=== PATIENT | male | born 1930 | race Caucasian/White ===

== ENCOUNTER 2017-01-20 17:07 | Observation (INO) | payer OTHER ==
[~2017-01-20] VITALS: Ht 182.9 cm; Wt 94.7 kg
[~2017-01-20 17:07] MED LIST: ASPIRIN EC81 MG; FISH OIL; FUROSEMIDE40 MG PO; IRON FORMULA PO; JANUVIA100 MG; LANTUS SOL100 UNITS/ SC; LIPITOR80 MG PO; LISINOPRIL10 MG PO; NITROSTAT0.4 MG SL; PLAVIX75 MG PO; POTASSIUM CHLO10 ME2 PO; PROTONIX40 MG PO; RANITIDINE HCL150 MG PO; VITAMIN D-11000 UNIT
--- NOTE | 2017-01-20 18:14 | DIAGNOSTIC IMAGING REPORT ---
PROCEDURE: XR CHEST 1 VIEW INDICATION: CHEST PAIN TECHNIQUE: Portable AP view 05:40 p.m. COMPARISON: Chest x-ray 11/10/2015 FINDINGS: Poor inspiration with mild right upper and left lower lobe infiltrates. Mediastinotomy. Mild cardiomegaly. Pulmonary vascular is within normal limits. Severe right glenohumeral joint degenerative changes. IMPRESSION: 1. Bilateral infiltrate suggestive of pneumonia, possibly aspiration. 2. Median sternotomy and mild cardiomegaly
--- NOTE | 2017-01-20 20:51 | ED ORDER SUMMARY ---
..... Patient: EDILMA DURANT OrderSheet [facility] VisitID: [id number] [address] [place] [address] 86y, M Registration Date/Time: 01/20/2017 ORDER SHEET Weight: 113.3 kg (estimated) Allergies: Duloxetine, No Known Drug Allergy, Pantoprazole GENERAL ORDERS: Auto Slip Cover Installer (Continuous) (17:21 01/20/2017 MWinterer R.N. per protocol) (17:21 MWinterer R.N.) Chest 1V Urgent (17:21 01/20/2017 MWinterer R.N. per protocol) (Ack 17:29 RKaruga) (17:46 MWinterer R.N.) Cardiac Panel Stat (17:21 01/20/2017 MWinterer R.N. per protocol) (Ack 17:29 RKaruga) (17:39 MWinterer R.N.) Oxygen (2 L/min) (NC) (17:21 01/20/2017 MWinterer R.N. per protocol) (17:21 MWinterer R.N.) Pulse oximeter (17:21 01/20/2017 MWinterer R.N. per protocol) (17:21 MWinterer R.N.) EKG - ER Stat (17:21 01/20/2017 MWinterer R.N. per protocol) (17:21 MWinterer R.N.) Blood Culture (No) (N/A) Urgent (20:49 01/20/2017 Vandana SADLER) (Ack 20:56 AMcQuoid ER Tech1) (21:03 TBowen R.N.) Lactate, Serum Urgent (20:50 01/20/2017 Vandana SADLER) (Ack 20:56 AMcQuoid ER Tech1) (21:03 TBowen R.N.) PCT (Procalcitonin) Urgent (21:00 01/20/2017 Vandana SADLER) (Ack 21:03 AMcQuoid ER Tech1) (21:04 AMcQuoid ER Tech1) MEDICATION ORDERS: NitroGLYCERIN Paste Topical 1 in. (to CW) (17:32 01/20/2017 Vandana SADLER) (Ack 17:39 MWinterer R.N.) (17:46 MWinterer R.N.) IV FLUIDS: IV Saline Lock (17:21 01/20/2017 MWinterer R.N. per protocol) (17:21 MWinterer R.N.) Ceftriaxone IV 2 gm/50mL (AFTER BLOOD CULTURE) (20:50 01/20/2017 Vandana SADLER) (21:16 TBowen R.N.) Azithromycin IV 500 mg/250 mL (AFTER BLOOD CULTURE) (20:50 01/20/2017 Vandana SADLER) (Ack 21:29 TBowen R.N.) (21:33 TBowen R.N.) ORDER SHEET NOTES: [Electronically signed by Joyce Lara R.N. (22:17 01/20/2017)] [Electronically signed by Jem Pastrana MD (22:30 01/20/2017)] [Electronically locked/signed by Joyce Lara R.N. (22:17 01/20/2017)]
--- NOTE | 2017-01-20 20:51 | ED NURSING NOTES ---
Clinical Report - Nurses [facility] [address] [place] [address] 01/20/2017 17:08 Patient: EDILMA DURANT TRIAGE Acuity: LEVEL 2. Chief Complaint: CHEST PAIN. Alert. No acute distress. --17:18 Tresa Horn R.N. 17:11 01/20/17. BP: 139/89. HR: 73. RR: 20. O2 saturation: 99% on room air. Temp: 98.3 F (oral). Pain level now: 11/24. --17:18 Tresa Horn R.N. Weight: 113.3 kg estimated. Height/Length: 69 inches Per Patient. BMI: 36.9. --17:17 Tresa Horn R.N. Medications Atorvastatin Calcium Oral 80 mg, daily. Carvedilol Phosphate ER Oral 20 mg, 1/2 tab BID. Furosemide Oral 80 mg, 1/2 tab daily. Januvia Oral (Tablet 100 mg) 100mg, daily. --19:11 Tresa Horn R.N. Donepezil HCl Oral (Tablet 10 mg). --19:11 Tresa Horn R.N. Clopidogrel Bisulfate Oral 75 mg. --19:11 Tresa Horn R.N. MetFORMIN HCl Oral 500 mg. --19:12 Tresa Horn R.N. Allopurinol Oral 300 mg. --19:12 Tresa Horn R.N. Hydrocodone-Acetaminophen Oral. --19:12 Tresa Horn R.N. Nitrostat Sublingual 0.4 mg. --19:13 Tresa Horn R.N. Stool Softener Oral. --19:13 Tresa Horn R.N. D3-1000 Oral. --19:13 Tresa Horn R.N. Tylenol Extra Strength Oral. --19:13 Tresa Horn R.N. Allergies Duloxetine. No Known Drug Allergy. Pantoprazole. --17:13 Tresa Horn R.N. Medication/allergy information source: the patient. --17:18 Tresa Horn R.N. History Arrived by EMS. Historian: patient. Accompanied by spouse. Primary physician (Marco Antonio). This started yesterday. Relates location as in the right chest area. Treatment SITE ACQUISITION MANAGER: Took aspirin. Pre-hospital 12-lead EKG. Medications given- nitroglycerin x2. SOCIAL HX: Smoker- current status unknown. No alcohol use or drug use. NUTRITIONAL RISK ASSESSMENT: The nutritional risk assessment revealed no deficiencies. FALL RISK ASSESSMENT: Fall risk assessment completed. Risk factors identified include patient age greater than 65 years and impairment of mobility, sight and hearing. Fall interventions initiated. Patient placed on stretcher. Side rails up x2. Brakes on Bed in low position. Call light in reach of patient. FUNCTIONAL ASSESSMENT: Functional assessment performed: requires assistance with the activities of daily living; uses walker- this mobility impairment is an ongoing problem; wears glasses- this visual impairment is an ongoing problem; hard of hearing in both ears and uses a hearing aid in both ears- this hearing impairment is an ongoing problem; cognitive impairment- Alzheimer's disease. LEARNING NEEDS ASSESSMENT: A learning needs assessment was performed. Factors affecting the patient's ability to learn include cognitive limitations. SKIN INTEGRITY ASSESSMENT: Skin integrity risk assessment completed. No skin integrity risk identified. --17:18 Tresa Horn R.N. PROBLEMS: Changed Mental Status. Alzheimer's Disease. Anemia. Leukocytosis. Chest Pain. Gastroesophageal Reflux. Hyperlipidemia. Nephropathy. CVA - Cerebrovascular Accident. Gout. Coronary Artery Disease. Immunizations. Fall. Abrasion(s). Renal Insufficiency. Congestive Heart Failure. Diabetes Mellitus. Myocardial Infarction. Hypertension. Last Tetanus. Tetanus Status. --17:14 Tresa Horn R.N. ADDITIONAL SURGERIES: Back Surgery. Cataract Surgery. Cholecystectomy. Coronary Artery Bypass Graft. Knee Surgery. Shoulder Surgery. Umbilical Hernia Repair. --17:14 Tresa Horn R.N. Assessment GENERAL / NEURO / PSYCH: Alert. Oriented X 4. Appears in no acute distress. Claudette Coma Scale: 15- eyes open spontaneously (4); best verbal response- oriented x 4 (5); best motor response- obeys commands (6). Patient appears calm and cooperative. RESPIRATORY: Respirations not labored. CVS: Capillary refill less than 2 seconds. GI / : Abdomen soft. SKIN: Mucous membranes are pink. Skin is warm and dry. --17:18 Tresa Horn R.N. Interventions ID band on patient. To treatment room. --17:18 Tresa Horn R.N. 17:12 01/20/2017 Site #1 started prior to arrival by EMS via IV in the left forearm with an 20g angiocath. --17:12 Tresa Horn R.N. PHYSICAL ASSESSMENT 17:18 01/20/17. To room via stretcher. Patient gowned. GENERAL / NEURO / PSYCH: Alert. Oriented X 4. Appears in no acute distress. HEENT: Mucous membranes are pink. RESPIRATORY: Respirations not labored. CVS: Pulses within normal limits. Capillary refill less than 2 seconds. GI / : Abdomen soft and nontender. EXTREMITIES: No lower extremity edema. SKIN: Skin is warm and dry. Normal skin turgor. --17:19 Tresa Horn R.N. 17:19 01/20/17. CVS: Cardiac rhythm: normal sinus rhythm. --17:19 Tresa Horn R.N. NURSING PROGRESS NOTES 17:19 01/20/17. Oxygen administered by nasal cannula at 2 liters. access registrar, pulse oximeter and NIBP monitor placed on patient. Patient gowned. Two patient identifiers checked. Call light placed in reach. Side rails up x 2. Bed placed in lowest position. Brakes of bed on. Patient ready for evaluation- chart flagged and ED physician notified. --17:19 Tresa Horn R.N. EKG time: (1717). EKG was performed by a tech and shown to the ED physician. --17:20 Tresa Horn R.N. 17:46 01/20/2017 NITROGLYCERIN PASTE Topical 1 inch. Applied to the right chest. Allergies verified and confirmed 5 rights. --17:46 Tresa Horn R.N. 17:46 01/20/17. Patient ID band checked for patient name and birthdate: patient confirmed urine collected with return of yellow-colored urine; sample sent to lab. Specimen labeled in the presence of the patient. --17:46 Tresa Horn R.N. 18:40 01/20/17. BP: 126/72. HR: 74. RR: 18. O2 saturation: 100% on nasal cannula at 2 liters/minute. --18:43 Tresa Horn R.N. 19:08 01/20/17. Care transferred and report given (BHAKTI Cook). --19:08 Tresa Horn R.N. 19:10 01/20/17. BP: 115/91. HR: 72. RR: 18. O2 saturation: 100% on nasal cannula at 2 liters/minute. --19:10 Tresa Horn R.N. ( pt resting in bed, pt denies any needs at this time). --19:40 Karen Benavides Reassurance given to the patient and patient's family. ( explained that we are awaiting a bed assignment for this pt, family and pt state understanding). --19:52 Karen Benavides 21:16 01/20/2017 Started 2 gm of Ceftriaxone IVPB in bag #1 50 mL; at 150 mL/hr over 30 minute(s) via site #1 via IV pump. Allergies verified and confirmed 5 rights. IV patency established. IV site checked: no pain, redness, or swelling. IV flushed thoroughly pre- and post-medication administration. --21:16 Karen Benavides 21:33 01/20/2017 Started 500 mg of Azithromycin IVPB in bag #1 250 mL; at 255 mL/hr over 1 hour(s) via site #1 via IV pump. Allergies verified and confirmed 5 rights. IV patency established. IV site checked: no pain, redness, or swelling. IV flushed thoroughly pre- and post-medication administration. --21:34 Karen Benavides 21:33 01/20/2017 Ceftriaxone IVPB Discontinued: bag #1 completed. Total amount infused: 50 mL. IV patency established. IV site checked: no pain, redness, or swelling. IV flushed thoroughly. --21:33 Karen Benavides 22:15 01/20/2017 Azithromycin IVPB Continued: upon admission at the rate of 255 mL/hr bag #1. IV patency established. IV site checked: no pain, redness, or swelling. IV flushed thoroughly. --22:16 Karen Benavides DISPOSITION / DISCHARGE Admitted to Acute Care. Report was given to a nurse via a phone call. Report included patient's care, treatment, medications, reviewed medication reconcilliation, and condition (including any recent changes or anticipated changes). All questions were answered. Report was acknowledged and care was transferred. Patient's personal items; items were placed in belongings bag and given to the family. --21:44 Karen Benavides 22:14 01/20/17. BP: 134/67. HR: 72. RR: 18. O2 saturation: 99%. Temp: deferred. Pain level now: 0/10. --22:15 Karen Benavides Departure time: 22:15. --22:15 Karen Benavides 22:16 01/20/2017 Site #[address] upon admission; patent, no pain and no signs of infection or infiltration; flushes easily. --22:16 Karen Benavides Locked/Released at 01/20/2017 22:17 by Karen Benavides
--- NOTE | 2017-01-20 20:51 | ED CLINICAL REPORT ---
Clinical Report - Physicians/Mid Levels [facility] [address] [place] [address] 01/20/2017 17:08 Patient: EDILMA DURANT Time Seen: 17:24. Arrived- By ambulance. Historian- patient and family. Evaluation limited Mr Durant has short term memory issues. HISTORY OF PRESENT ILLNESS Chief Complaint: CHEST PAIN. At its maximum, severity described as 8 / 10. Modifying factors- relieved by nitroglycerin (four). Relief was complete. It is described as "pain" and it is described as located in the right chest area. This started at 10; Pt notes severe R sided and central chest pain at 10. He notes a cough but denies fever. He took ASA and two NTG his gave him and then got two more NTG sprays from the paramedics. and is still present. (unknown onset). Onset during light activity. No nausea, difficulty breathing or diaphoresis. (ASA - at home 2 2 nitro at home 2 by medics). Recent medical care: The patient was seen recently by a health care provider. ( Checkup with Dr Yan). REVIEW OF SYSTEMS No fever, chills, headache, fever or sore throat. No difficulty breathing, pedal edema, abdominal pain or difficulty with urination. He has had a cough and cough, black stools and stools and chest pain. He has had altered mental status: forgetful. PAST HISTORY Alphonso Yan/Adali (cardiology) PAST HISTORY Coronary artery disease with myocardial infarction. Hypertension. Type II diabetes mellitus. Coronary artery disease. Renal disease. Hyperlipidemia. Advance dementia. Very hard of hearing Aortic stenosis - not operative CABG x 3 vessels on 06.15.06 Back Surgery. Cataract Surgery. Cholecystectomy. Coronary Artery Bypass Graft. Knee Surgery. Shoulder Surgery. Umbilical Hernia Repair. Medications: Tylenol Extra Strength Oral. D3-1000 Oral. Stool Softener Oral. Nitrostat Sublingual 0.4 mg. Hydrocodone-Acetaminophen Oral. Allopurinol Oral 300 mg. MetFORMIN HCl Oral 500 mg. Clopidogrel Bisulfate Oral 75 mg. Donepezil HCl Oral (Tablet 10 mg). Atorvastatin Calcium Oral 80 mg, daily. Carvedilol Phosphate ER Oral 20 mg, 1/2 tab BID. Furosemide Oral 80 mg, 1/2 tab daily. Januvia Oral (Tablet 100 mg) 100mg, daily. Allergies: Duloxetine. No Known Drug Allergy. Pantoprazole. ADDITIONAL NOTES The nursing notes have been reviewed. PHYSICAL EXAM Vital Signs: 01/20/2017 22:14 BP: 134/67. HR: 72. RR: 18. O2 saturation: 99%. Pain level now: 0. 01/20/2017 21:34 BP: 132/87. HR: 74. RR: 16. O2 saturation: 99%. Pain level now: 0. 01/20/2017 20:13 BP: 150/72. HR: 67. RR: 16. O2 saturation: 100%. Pain level now: 0. 01/20/2017 19:10 BP: 115/91. HR: 72. RR: 18. O2 saturation: 100%. 01/20/2017 18:40 BP: 126/72. HR: 74. RR: 18. O2 saturation: 100%. 01/20/2017 17:11 BP: 139/89. HR: 73. RR: 20. O2 saturation: 99%. Temp: 98.3 F. Pain level now: 3/10. Appearance: Alert. No acute distress. Eyes: Pupils equal, round and reactive to light. ENT: Pharynx normal. CVS: Normal heart rate and rhythm. Heart sounds normal. Respiratory: No respiratory distress. Breath sounds normal. Chest nontender. Abdomen: Soft and nontender. Bowel sounds normal. Skin: Skin warm. Normal skin color. Extremities: Extremities exhibit normal ROM. No lower extremity edema. LABS, X-RAYS, AND EKG EKG: No acute ischemia. Chest X-ray: (PROCEDURE: XR CHEST 1 VIEW INDICATION: CHEST PAIN TECHNIQUE: Portable AP view 05:40 p.m. COMPARISON: Chest x-ray 11/10/2015 FINDINGS: Poor inspiration with mild right upper and left lower lobe infiltrates. Mediastinotomy. Mild cardiomegaly. Pulmonary vascular is within normal limits. Severe right glenohumeral joint degenerative changes. IMPRESSION: 1. Bilateral infiltrate suggestive of pneumonia, possibly aspiration. 2. Median sternotomy and mild cardiomegaly). The X-rays were interpreted by the radiologist and contemporaneously by me. Laboratory Tests: CBC w Diff: (ALONSO: 01/20/2017 17:30) ( MsgRcvd 01/20/2017 18:11) Final results Test Result Flag Units (Reference) WHITE BLOOD COUNT 11.3 K/uL (4.5-11.5) RED BLOOD COUNT 4.46 L M/uL (4.50-5.90) HEMOGLOBIN 13.6 gm/dL (13.5-17.5) HEMATOCRIT 41.9 % (41.0-53.0) MEAN CELL VOLUME 94 fL (80-100) MEAN CORPUSCULAR HGB 31 pg (26-34) MEAN CORPUSCULAR HGB CONC 33 g/dL (31-37) RED CELL DISTRIBUTION WIDTH 18.7 H % (11.6-14.8) PLATELET COUNT 220 K/uL (150-400) NEUTROPHIL % 79.7 H % (50-75) LYMPH % 12.8 L % (25-40) MONO % 6.3 % (3-14) EOSINOPHIL % 1.0 % (0-4) BASOPHIL % 0.2 % (0-2) CHEM 13 PANEL: (ALONSO: 01/20/2017 17:30) ( MsgRcvd 01/20/2017 18:33) Final results Test Result Flag Units (Reference) GLUCOSE 182 H mg/dL (70-110) BUN 16 mg/dL (7-18) CREATININE 1.5 H mg/dL (0.6-1.3) Estimated GFR 46.94 mL/min Estimated GFR- 56.89 mL/min Note: Persistent reduction over 3 months in eGFR<60 mL/min/1.73 m2 defines CKD. Patients with eGFR values>=60 mL/min/1.73 m2 may also have CKD if evidence ofpersistent proteinuria. Additional information may be foundat www.kidney.org. SODIUM 140 mmol/L (136-145) POTASSIUM 4.5 mmol/L (3.5-5.1) CHLORIDE 101 mmol/L (98-107) CARBON DIOXIDE 30 mmol/L (21-32) CALCIUM 8.6 mg/dL (8.5-10.1) TOTAL PROTEIN 6.3 L g/dL (6.4-8.2) ALBUMIN 3.0 L g/dL (3.3-5.0) BILIRUBIN, TOTAL 1.2 H mg/dL (0.0-1.0) ALKALINE PHOSPHATASE 134 H U/L (46-116) AST (SGOT) 19 U/L (15-37) ALT (SGPT) 23 U/L (12-78) MAGNESIUM 2.4 mg/dL (1.8-2.4) CPK 50 U/L (24-260) TROPONIN I 0.05 ng/mL (0.00-1.5) TROPONIN REFERENCE RANGE:<0.1 NEGATIVE0.1-1.5 INDETERMINANT>1.5 POSITIVE . PROGRESS AND PROCEDURES Course of Care: 19:34 01/20/17. Labs neg. No pain We were able to get a bed. I discussed the patient with Dr Yan and with Dr Wagner. Dr Wagner has has seen the patient in the ED. The symptoms are not clearly pneumonia nor ACS. The patient will initially be treated for both. Disposition orders written. CLINICAL IMPRESSION CHEST PAIN - RO ACS BILATERAL PULMONARY INFILTRATES. (Electronically signed by Jem Pastrana MD 01/20/2017 22:30)
--- NOTE | 2017-01-20 20:51 | ED ORDER SUMMARY ---
..... Patient: EDILMA DURANT OrderSheet [facility] VisitID: [id number] [address] [place] [address] 86y, M Registration Date/Time: 01/20/2017 ORDER SHEET Weight: 113.3 kg (estimated) Allergies: Duloxetine, No Known Drug Allergy, Pantoprazole GENERAL ORDERS: Monitoring Specialist (Continuous) (17:21 01/20/2017 MWinterer R.N. per protocol) (17:21 MWinterer R.N.) Chest 1V Urgent (17:21 01/20/2017 MWinterer R.N. per protocol) (Ack 17:29 RKaruga) (17:46 MWinterer R.N.) Cardiac Panel Stat (17:21 01/20/2017 MWinterer R.N. per protocol) (Ack 17:29 RKaruga) (17:39 MWinterer R.N.) Oxygen (2 L/min) (NC) (17:21 01/20/2017 MWinterer R.N. per protocol) (17:21 MWinterer R.N.) Pulse oximeter (17:21 01/20/2017 MWinterer R.N. per protocol) (17:21 MWinterer R.N.) EKG - ER Stat (17:21 01/20/2017 MWinterer R.N. per protocol) (17:21 MWinterer R.N.) Blood Culture (No) (N/A) Urgent (20:49 01/20/2017 Vandana SADLER) (Ack 20:56 AMcQuoid ER Tech1) (21:03 TBowen R.N.) Lactate, Serum Urgent (20:50 01/20/2017 Vandana SADLER) (Ack 20:56 AMcQuoid ER Tech1) (21:03 TBowen R.N.) PCT (Procalcitonin) Urgent (21:00 01/20/2017 Vandana SADLER) (Ack 21:03 AMcQuoid ER Tech1) (21:04 AMcQuoid ER Tech1) MEDICATION ORDERS: NitroGLYCERIN Paste Topical 1 in. (to CW) (17:32 01/20/2017 Vandana SADLER) (Ack 17:39 MWinterer R.N.) (17:46 MWinterer R.N.) IV FLUIDS: IV Saline Lock (17:21 01/20/2017 MWinterer R.N. per protocol) (17:21 MWinterer R.N.) Ceftriaxone IV 2 gm/50mL (AFTER BLOOD CULTURE) (20:50 01/20/2017 Vandana SADLER) (21:16 TBowen R.N.) Azithromycin IV 500 mg/250 mL (AFTER BLOOD CULTURE) (20:50 01/20/2017 Vandana SADLER) (Ack 21:29 TBowen R.N.) (21:33 TBowen R.N.) ORDER SHEET NOTES: [Electronically signed by Joyce Lara R.N. (22:17 01/20/2017)] [Electronically signed by Jem Pastrana MD (22:30 01/20/2017)] [Electronically locked/signed by Joyce Lara R.N. (22:17 01/20/2017)]
--- NOTE | 2017-01-20 22:30 | ED MED RECONCILIATION SUMMARY ---
Patient: EDILMA DURANT Medication Reconciliation Report [facility] VisitID: [id number] [address] [place] [address] 86y, M Registration Date/Time: 01/20/2017 Weight: 113.3 kg Height/Length: 69 in. BMI: 36.9 ALLERGIES: Duloxetine, No Known Drug Allergy, Pantoprazole The patient's Home Medications are listed below: THE FOLLOWING MEDICATIONS NEED TO BE RECONCILED: Allopurinol Oral 300 mg Atorvastatin Calcium Oral 80 mg, daily Carvedilol Phosphate ER Oral 20 mg, 1/2 tab BID Clopidogrel Bisulfate Oral 75 mg D3-1000 Oral Donepezil HCl Oral (10 mg) Furosemide Oral 80 mg, 1/2 tab daily Hydrocodone-Acetaminophen Oral Januvia Oral (100 mg) 100mg, daily MetFORMIN HCl Oral 500 mg Nitrostat Sublingual 0.4 mg Stool Softener Oral Tylenol Extra Strength Oral The source(s) of the original Home Medication information: patient The following Medications were given to the patient in the Emergency Department: NITROGLYCERIN PASTE [TOPICAL] Topical 1 in., administered: 01/20/2017 5:46:00 PM Ceftriaxone [IVPB] IVPB bolus 0, then 2 gm 150 mL/hr, administered: 01/20/2017 9:16:00 PM Azithromycin [IVPB] IVPB bolus 0, then 500 mg 255 mL/hr, administered: 01/20/2017 9:33:00 PM The following Medications were prescribed to the patient: None.
--- NOTE | 2017-01-20 22:30 | ED DISCHARGE INSTRUCTIONS ---
Patient: EDILMA DURANT General Instructions [facility] VisitID: [id number] [address] [place] [address] 86y, M Registration Date/Time: 01/20/2017 CHEST PAIN - RO ACS BILATERAL PULMONARY INFILTRATES. (Electronically signed by Jem Pastrana MD 01/20/2017 22:30)
--- NOTE | 2017-01-20 22:30 | ED DISCHARGE INSTRUCTIONS ---
Patient: EDILMA DURANT General Instructions [facility] VisitID: [id number] [address] [place] [address] 86y, M Registration Date/Time: 01/20/2017 CHEST PAIN - RO ACS BILATERAL PULMONARY INFILTRATES. (Electronically signed by Jem Pastrana MD 01/20/2017 22:30)
--- NOTE | 2017-01-20 22:30 | ED MAR SUMMARY ---
..... Medication Administration Record [facility] [address] [place] [address] Patient: EDILMA DURANT Visit ID: [id number] 86y, M Weight: 113.3 kg Height/Length: 69 in BMI: 36.9 ALLERGIES: Duloxetine, No Known Drug Allergy, Pantoprazole Given 17:46 01/20/2017 Tresa Horn R.N. Medication Administered: NITROGLYCERIN PASTE [TOPICAL], Dose: 1 in. Topical. Medication Ordered: NitroGLYCERIN Paste Topical 1 in. (to CW). Start 21:16 01/20/2017 Karen Benavides, Stop 21:33 01/20/2017 Karen Benavides Medication Administered: CEFTRIAXONE [IVPB], Dose: 2 gm IVPB over 30 minute(s), Rate: 150 mL/hr, Dispensed: 50 mL bag, Site: #1 left forearm. Medication Ordered: Ceftriaxone IV 2 gm/50mL (AFTER BLOOD CULTURE). Start 21:33 01/20/2017 Karen Benavides, Continued Upon Admission 22:15 01/20/2017 Karen Benavides Medication Administered: AZITHROMYCIN [IVPB], Dose: 500 mg IVPB over 1 hour(s), Rate: 255 mL/hr, Dispensed: 250 mL bag, Site: #1 left forearm. Medication Ordered: Azithromycin IV 500 mg/250 mL (AFTER BLOOD CULTURE).
--- NOTE | 2017-01-20 22:30 | ED MAR SUMMARY ---
..... Medication Administration Record [facility] [address] [place] [address] Patient: EDILMA DURANT Visit ID: [id number] 86y, M Weight: 113.3 kg Height/Length: 69 in BMI: 36.9 ALLERGIES: Duloxetine, No Known Drug Allergy, Pantoprazole Given 17:46 01/20/2017 Tresa Horn R.N. Medication Administered: NITROGLYCERIN PASTE [TOPICAL], Dose: 1 in. Topical. Medication Ordered: NitroGLYCERIN Paste Topical 1 in. (to CW). Start 21:16 01/20/2017 Karen Benavides, Stop 21:33 01/20/2017 Karen Benavides Medication Administered: CEFTRIAXONE [IVPB], Dose: 2 gm IVPB over 30 minute(s), Rate: 150 mL/hr, Dispensed: 50 mL bag, Site: #1 left forearm. Medication Ordered: Ceftriaxone IV 2 gm/50mL (AFTER BLOOD CULTURE). Start 21:33 01/20/2017 Karen Benavides, Continued Upon Admission 22:15 01/20/2017 Karen Benavides Medication Administered: AZITHROMYCIN [IVPB], Dose: 500 mg IVPB over 1 hour(s), Rate: 255 mL/hr, Dispensed: 250 mL bag, Site: #1 left forearm. Medication Ordered: Azithromycin IV 500 mg/250 mL (AFTER BLOOD CULTURE).
--- NOTE | 2017-01-20 22:30 | ED MED RECONCILIATION SUMMARY ---
Patient: EDILMA DURANT Medication Reconciliation Report [facility] VisitID: [id number] [address] [place] [address] 86y, M Registration Date/Time: 01/20/2017 Weight: 113.3 kg Height/Length: 69 in. BMI: 36.9 ALLERGIES: Duloxetine, No Known Drug Allergy, Pantoprazole The patient's Home Medications are listed below: THE FOLLOWING MEDICATIONS NEED TO BE RECONCILED: Allopurinol Oral 300 mg Atorvastatin Calcium Oral 80 mg, daily Carvedilol Phosphate ER Oral 20 mg, 1/2 tab BID Clopidogrel Bisulfate Oral 75 mg D3-1000 Oral Donepezil HCl Oral (10 mg) Furosemide Oral 80 mg, 1/2 tab daily Hydrocodone-Acetaminophen Oral Januvia Oral (100 mg) 100mg, daily MetFORMIN HCl Oral 500 mg Nitrostat Sublingual 0.4 mg Stool Softener Oral Tylenol Extra Strength Oral The source(s) of the original Home Medication information: patient The following Medications were given to the patient in the Emergency Department: NITROGLYCERIN PASTE [TOPICAL] Topical 1 in., administered: 01/20/2017 5:46:00 PM Ceftriaxone [IVPB] IVPB bolus 0, then 2 gm 150 mL/hr, administered: 01/20/2017 9:16:00 PM Azithromycin [IVPB] IVPB bolus 0, then 500 mg 255 mL/hr, administered: 01/20/2017 9:33:00 PM The following Medications were prescribed to the patient: None.
--- NOTE | 2017-01-20 22:47 | HISTORY AND PHYSICAL ---
ADMITTED: 01/20/2017 CHIEF COMPLAINT: 1. Chest pain HISTORY OF PRESENT ILLNESS: This is an 86-year-old white male who developed chest pain at 10:00 a.m. this morning but waited it out, and chest pain lasted for hours. Finally, the patient decided to call 911. The patient received a few nitroglycerin by EMS and then also more nitroglycerin in the emergency department, and finally the chest pain resolved completely. The patient states that it was right central chest pain and no radiation, severity 8/10. No palpitations, but had some shortness of breath with sweats and some coughing with sputum. No nausea. No vomiting. No dizziness. MEDICAL/SURGICAL HISTORY: Past medical history is remarkable for diabetes mellitus, coronary artery disease, stroke, congestive heart failure, hypertension, chronic renal failure, anemia, hyperlipidemia, also history of Alzheimer disease, GERD. Surgical history is remarkable for CABG, knee surgery, back surgery, shoulder surgery, and also cholecystectomy and cataract. Hospitalization: The last one was 2 years ago and that was for a stroke. MEDICATIONS: 1. Atorvastatin 80 mg daily. 2. Carvedilol ER 20 mg 1-1/2 tablets b.i.d. 3. Furosemide 80 mg 1/2 tablet daily. 4. Januvia 100 mg daily. 5. Donepezil 10 mg daily. 6. Plavix 75 mg daily. 7. Metformin 500 mg twice a day. 8. Allopurinol 300 mg daily. 9. Vicodin 3 times a day as needed for pain. 10. Nitroglycerin sublingual as needed for chest pain. ALLERGIES: 1. DULOXETINE. 2. PROTONIX. SOCIAL HISTORY: The patient is , lives with his , has 2 kids. No history of smoking, alcohol, or drug abuse. FAMILY HISTORY: Noncontributory. REVIEW OF SYSTEMS: He has been losing weight recently. Hearing loss. No difficulty with vision. He has a runny nose. No congestion. Cough as described. Cardiopulmonary symptoms as described above. No indigestion. No abdominal pain. No nausea. No vomiting. Normal regular bowel movements. No dysuria, frequency, or incontinence. Complains of generalized arthralgia. No headaches. No dizziness. Some tingling in the arm and hands and also weakness in the right arm. No anxiety or depression. PHYSICAL EXAMINATION: VITAL SIGNS: Blood pressure 139/89, pulse is 73, respirations 20, oxygen saturation is 99% on room air, temperature is 98.3. GENERAL APPEARANCE: Well developed, well nourished, good body build, no acute distress. No chest pain. HEENT: Ears: Normal tympanic membranes. Mouth: Normal hypopharynx, no exudation, no erythema. Nose: Normal mucosa. NECK: Supple. No JVD. No carotid bruit. No palpable mass. SKIN: Warm and dry with good turgor. LUNGS: Clear to auscultation. No rhonchi or wheezing or crackles. HEART: Regular S1 and S2. No murmur. No S3 was heard. ABDOMEN: Soft, nontender. Bowel sounds are positive. EXTREMITIES: No edema. Good peripheral pulses. No signs of DVT or cyanosis. MUSCULOSKELETAL SYSTEM: Grossly within normal limits. NEUROLOGIC: Alert and oriented x3. Cranial nerves are grossly intact. No motor deficits. Pupils are equal, round, and reactive to light. Extraocular movements are intact. No nystagmus. No cerebellar signs. Deep tendon reflexes are bilateral and symmetric. LAB/IMAGING: Chest x-ray showed bilateral infiltrates. EKG is normal sinus rhythm. CBC: White blood count is 11.3, hemoglobin is 13.6, hematocrit is 41.9, and platelet count is 220. Glucose is 182, BUN is 16, creatinine is 1.5. Sodium is 140, potassium is 4.5, chloride is 101, CO2 is 30, calcium is 8.6. Liver enzymes are unremarkable, except mildly high bilirubin. CPK is 50 and troponin I is less than 0.05. Magnesium is 2.4. IMPRESSION: 1. Chest pain. 2. Bilateral pneumonia. 3. Coronary artery disease. 4. Congestive heart failure. 5. Hypertension. 6. Diabetes mellitus. PLAN: The patient will be admitted to acute care telemetry. Will put nitroglycerin paste on along with outpatient medications including Plavix. We will obtain cardiac enzyme series. Also the patient will be on Rocephin and Zithromax for pneumonia. I will hold the metformin due to increased creatinine and put on glipizide 5 mg daily, but we will continue other outpatient medications.
[2017-01-20 22:54] VITALS: BP 128/87
[2017-01-20] MEDS ORDERED: ALLOPURINOL300 MG PO (23:49)
[2017-01-20] MEDS ORDERED: LANTUS SOL100 UNITS/ (23:49)
[2017-01-20] MEDS ORDERED: CARVEDILOL25 MG PO (23:50)
[2017-01-20] MEDS ORDERED: COREG25 MG PO (23:50)
[2017-01-20] MEDS ORDERED: JANUVIA100 MG (23:51)
[2017-01-20] MEDS ORDERED: VITAMIN D-31000 UNIT PO (23:52)
[2017-01-20] MEDS ORDERED: VICODIN EQUIVAL1 TAB PO (23:52)
[2017-01-20] MEDS ORDERED: ACETAMINOPHEN650 MG PO (23:53)
[2017-01-20] MEDS ORDERED: DONEPEZIL HCL10 M1 PO (23:54)
[2017-01-20] MEDS ORDERED: METFORMIN HCL500 MG PO (23:55)
[2017-01-21 02:25] VITALS: BP 150/79
--- NOTE | 2017-01-21 06:16 | Progress Note ---
Subjective General ADVANCED CARE PLAN History of Present Illness his is an 86-year-old white male who developed chest pain at 10:00 a.m. this morning but waited it out, and chest pain lasted for hours. Finally, the patient decided to call 911. The patient received a few nitroglycerin by EMS and then also more nitroglycerin in the emergency department, and finally the chest pain resolved completely. The patient states that it was right central chest pain and no radiation, severity 8/10. No palpitations, but had some shortness of breath with sweats and some coughing with sputum. No nausea. No vomiting. No dizziness. A discussion was undertaken with the patient regarding previous advance care arrangements/decisions. The following advanced directives were noted by the patient and discussed with me at the time of admission. ADVANCED DIRECTIVES: 1. Living well: No 2. POLST: No 3. CODE STATUS: Full no code 4. D[employer] Health care: No 5. Donor card: No The patient has expressed interest in not pursuing any form of resuscitation at this time. She has opted not to pursue intubation/mechanical ventilation, CPR, electrical cardioversion, or life-sustaining efforts involving drugs at the time of cardiopulmonary arrest. The patient's wishes were documented in the chart and orders regarding the patient's wishes entered into the [employer] CPOE system. The "Advance Care Plan Document" [was/was not] distributed to patient to discuss with [her/his] family. Less than 30 minutes was spent in performing the above tasks and documentation of the patient's advanced care plan.
--- NOTE | 2017-01-21 06:32 | Progress Note ---
Subjective General Note date: January 21, 2017 Admission date January 20, 2017 Status: Acute care inpatient Bilateral pneumonia CODE STATUS full 86-year-old white male who developed chest pain at 10:00 a.m. this morning but waited it out, and chest pain lasted for hours. The patient received nitroglycerin in route by by EMS and also at the emergency department and eventual resolution of the chest pain. X-rays examination in the emergency department showed bilateral pneumonia. Patient was admitted by Dr. Fred Beck for further evaluation and treatment. Subjective Patient reports that he's feeling relatively well. Patient started having weakness and difficulty time with movement. Patient has a previous history of stroke. Patient no longer complaining of chest pain. Patient tolerating antibiotics Patient request Pain control Constitutional Denies: Chills, Sweats. ENT Denies: Nasal Discharge. Cardiovascular Denies: Edema. Musculoskeletal Neck Pain, Shoulder Pain, Leg Pain. Skin Denies: Rash. Physical Exam Vital Signs / I&Os Vital Signs Date Time Temp Pulse Resp B/P Pulse O2 O2 Flow FiO2 Ox Delivery Rate 01/21 0225 98.1 81 17 150/79 94 Room Air 01/21 0121 Room Air 01/20 2254 98.4 75 18 128/87 96 Room Air I&O 01/20 0800 01/20 1600 01/21 0000 Intake Total Output Total 250 Balance -250 General Appearance Cooperative, Mild distress Lungs decreased air movement bilateral, crackles/rhonchi Neck Supple Cardiovascular Normal S1 and S2 Abdomen Soft, No tenderness Extremities No cyanosis, No clubbing Psych/Mental Status Mood normal LAB Results Laboratory Tests 01/20 01/20 01/20 01/20 01/21 1730 1730 2057 2204 0604 Chemistry Plasma Sodium (136 - 145 mmol/L) 140 Plasma Potassium (3.5 - 5.1 mmol/L) 4.5 Plasma Chloride (98 - 107 mmol/L) 101 CO2 (Enzymatic) (21 - 32 mmol/L) 30 BUN (7 - 18 mg/dL) 16 Creatinine (0.6 - 1.3 mg/dL) 1.5 Est GFR ( Amer) (mL/min) 56.89 Est GFR (Non-Af Amer) (mL/min) 46.94 Glucose (70 - 110 mg/dL) 182 Lactic Acid (0.4 - 2.0 mmol/L) 1.3 Plasma Calcium (8.5 - 10.1 mg/dL) 8.6 Plasma Magnesium (1.8 - 2.4 mg/dL) 2.4 Total Bilirubin (0.0 - 1.0 mg/dL) 1.2 AST (15 - 37 U/L) 19 ALT (12 - 78 U/L) 23 Alkaline Phosphatase (46 - 116 U/L) 134 Creatine Kinase (24 - 260 U/L) 50 47 Cancelled Troponin (0.00 - 1.5 ng/mL) 0.05 0.06 Cancelled Total Protein (6.4 - 8.2 g/dL) 6.3 Albumin (3.3 - 5.0 g/dL) 3.0 Procalcitonin (0 - 0.5 ng/mL) < 0.05 Hematology WBC (4.5 - 11.5 K/uL) 11.3 RBC (4.50 - 5.90 M/uL) 4.46 Hgb (13.5 - 17.5 gm/dL) 13.6 Hct (41.0 - 53.0 %) 41.9 MCV (80 - 100 fL) 94 MCH (26 - 34 pg) 31 RDW (11.6 - 14.8 %) 18.7 Neut % (Auto) (50 - 75 %) 79.7 Lymph % (Auto) (25 - 40 %) 12.8 [place] % (Auto) (3 - 14 %) 6.3 Eos % (Auto) (0 - 4 %) 1.0 Baso % (Auto) (0 - 2 %) 0.2 Plt Count, EDTA (150 - 400 K/uL) 220 PUBS MCHC (31 - 37 g/dL) 33 01/21 01/21 0614 1404 Chemistry Plasma Sodium (136 - 145 mmol/L) 143 Plasma Potassium (3.5 - 5.1 mmol/L) 4.4 Plasma Chloride (98 - 107 mmol/L) 105 CO2 (Enzymatic) (21 - 32 mmol/L) 30 BUN (7 - 18 mg/dL) 17 Creatinine (0.6 - 1.3 mg/dL) 1.5 Est GFR ( Amer) (mL/min) 56.89 Est GFR (Non-Af Amer) (mL/min) 46.94 Glucose (70 - 110 mg/dL) 135 Plasma Calcium (8.5 - 10.1 mg/dL) 8.8 Creatine Kinase Cancelled Troponin Cancelled Hematology WBC (4.5 - 11.5 K/uL) 12.9 RBC (4.50 - 5.90 M/uL) 4.35 Hgb (13.5 - 17.5 gm/dL) 13.4 Hct (41.0 - 53.0 %) 41.1 MCV (80 - 100 fL) 95 MCH (26 - 34 pg) 31 RDW (11.6 - 14.8 %) 18.6 Neut % (Auto) (50 - 75 %) 82.1 Lymph % (Auto) (25 - 40 %) 11.3 [place] % (Auto) (3 - 14 %) 5.3 Eos % (Auto) (0 - 4 %) 1.0 Baso % (Auto) (0 - 2 %) 0.3 Plt Count, EDTA (150 - 400 K/uL) 209 PUBS MCHC (31 - 37 g/dL) 33 Microbiology Date/Time Procedure - Status Source Growth 01/20 2057 Blood Culture - RECD BLOOD Assessment and Plan Problem List 1. Pneumonia Plan Admitted to acute inpatient for bilateral pneumonia. Patient was recently found with weakness and cough. Diagnosed on x-ray with bilateral infiltrates. Patient on IV antibiotics including Rocephin and azithromycin. This will continue. Respiratory support is variable. 2. Chest pain Plan Patient had history of chest pain upon admission. Chest pain considered pleuritic. 3. CVA (cerebral vascular accident) Plan History of CVA and weakness. Patient having difficulty with mobility. Consider physical therapy to aid mobility. 4. Hypertension Plan Improve on blood pressure control. Continue with home medication as prescribed 5. Diabetes 1.5, managed as type 2 Plan Monitor blood sugars. Insulin sliding scale. Dietary changes. ADA diet 6. Anemia Plan Previous history of anemia. Secondary labs showed dilutional effect. Improve on dietary dietary E&M Codes Rounding: Inpt-High/34200
[2017-01-21 07:02] VITALS: BP 132/102
[2017-01-21 07:19] VITALS: BP 144/92
[2017-01-21 10:00] VITALS: BP 133/68
[2017-01-21 17:30] VITALS: BP 139/64
[2017-01-21 23:14] VITALS: BP 103/48
[2017-01-22 02:56] VITALS: BP 108/49
[2017-01-22 06:05] VITALS: BP 115/71
--- NOTE | 2017-01-22 06:31 | Progress Note ---
Subjective General Note date: January 22, 2017 Admission date January 20, 2017 Status: Acute care inpatient Bilateral pneumonia CODE STATUS full 86-year-old white male who developed chest pain , shortness or prior to his visitation to the ED. The chest pain on one of her multiple hours. Patient was given nitroglycerin in route by by EMS and also at the emergency department and eventual resolution of the chest pain. X-rays examination in the emergency department showed bilateral pneumonia. Patient was admitted by Dr. Fred Beck for further for cardiac failure and potential bilateral pneumonia Subjective Patient has had a resolution of the chest complaint. Patient has become more aggressive with his need for attention and need to go home. Patient states that he has sanity but is family disagrees. Patients base line is general damanding and anger. Patient sustained a stroke sometime ago 7 difficult time with transfer and ambulation. Needs attention by his on a consistent basis for care taking. Patient request To go home. Constitutional Denies: Chills, Sweats. Respiratory Denies: SOB w/exertion. Physical Exam Vital Signs / I&Os Vital Signs Date Time Temp Pulse Resp B/P Pulse O2 O2 Flow FiO2 Ox Delivery Rate 01/22 0605 98.2 82 16 115/71 94 Room Air 01/22 0256 98.1 78 18 108/49 95 / 0216 0.0 01/21 2314 98.2 78 18 103/48 95 01/21 2027 Room Air 01/21 1849 83 / 1730 98.1 83 18 139/64 95 / 1000 98.1 87 16 133/68 94 Room Air 0.0 01/21 0940 Nasal 4.0 Cannula 01/21 0852 88 / 0719 144/92 01/21 0702 97.9 88 16 132/102 94 Room Air I&O 01/21 0800 01/21 1600 01/22 0000 Intake Total 350 1273 871 Output Total 515 1377 464 Balance -165 -104 407 General Appearance No acute distress, angry speaking out Lungs abdomen there is diminished and lower base no crackles Neck Supple Cardiovascular distant heart sounds, irregular regular, no murmur Abdomen Soft, No tenderness Skin No Rashes LAB Results Laboratory Tests 01/22 529 Chemistry Plasma Sodium (136 - 145 mmol/L) 143 Plasma Potassium (3.5 - 5.1 mmol/L) 4.3 Plasma Chloride (98 - 107 mmol/L) 107 CO2 (Enzymatic) (21 - 32 mmol/L) 29 BUN (7 - 18 mg/dL) 21 Creatinine (0.6 - 1.3 mg/dL) 1.5 Est GFR ( Amer) (mL/min) 56.89 Est GFR (Non-Af Amer) (mL/min) 46.94 Glucose (70 - 110 mg/dL) 115 Plasma Calcium (8.5 - 10.1 mg/dL) 8.2 Total Bilirubin (0.0 - 1.0 mg/dL) 1.3 AST (15 - 37 U/L) 18 ALT (12 - 78 U/L) 18 Alkaline Phosphatase (46 - 116 U/L) 126 Total Protein (6.4 - 8.2 g/dL) 5.9 Albumin (3.3 - 5.0 g/dL) 2.8 Hematology WBC (4.5 - 11.5 K/uL) 10.7 RBC (4.50 - 5.90 M/uL) 4.15 Hgb (13.5 - 17.5 gm/dL) 12.6 Hct (41.0 - 53.0 %) 39.5 MCV (80 - 100 fL) 95 MCH (26 - 34 pg) 30 RDW (11.6 - 14.8 %) 18.5 Neut % (Auto) (50 - 75 %) 73.2 Lymph % (Auto) (25 - 40 %) 18.4 [place] % (Auto) (3 - 14 %) 5.9 Eos % (Auto) (0 - 4 %) 1.7 Baso % (Auto) (0 - 2 %) 0.8 Plt Count, EDTA (150 - 400 K/uL) 198 PUBS MCHC (31 - 37 g/dL) 32 Assessment and Plan Problem List 1. Pneumonia Plan Patient with diagnosis of bilateral pneumonia. Patient will be discharged home azithromycin to be completed for the next 3 days. Patient is having good resolution of his symptoms. 2. CHF (congestive heart failure) Plan Chest pain is resolved. Patient has a history of CHF. Cardiac revealed rehabilitation may be appropriate 3. Diabetes 1.5, managed as type 2 Plan Diabetic well-managed. Continue with the dietary changes. 4. Hypertension Plan Blood pressure well maintained. Continue with the outpatient regimen. 5. Chest pain Plan Chest pain resolved. Patient essentially ruled out. Follow-up with primary care doctor Jitendra Current status: Fair, unstable Anticipated discharge date: Anticipated discharge in days Anticipated discharge placement: Home Patient care time: Time spent in chart review, patient interview, physical exam, CPOE, and care documentation: 25 minutes Visit to patient today: Complexity of care: High Initial patient evaluation: Emergency department E&M Codes Rounding: Obsv-Comp/Moderate/[id number]
[2017-01-22 11:11] VITALS: BP 110/48
[2017-01-22] MEDS ORDERED: AZITHROMYCIN500 MG PO (11:41)
[2017-01-22] MEDS ORDERED: CEFDINIR300 MG PO (11:45)
--- NOTE | 2017-01-22 11:48 | Provider's Discharge Care Plan ---
Problem, Goal, Plan Problem List 1. Pneumonia Goals: Improve disease control, Improved health/wellness Instructions: Follow up as needed, Follow up as directed 2. Chest pain Goals: Diagnostic testing, Prevent disease progress Instructions: Follow up as directed, optimize cardiac 3. CHF (congestive heart failure) Goals: Improve disease control Instructions: Follow up as directed 4. Anemia Goals: Improve disease control Instructions: Follow up as directed
== END 2017-01-22 13:40 | disposition home or self-care (01) ==
LOC: ED SRH 17:07 → TRANS SRH 20:47 → ACUTE2 SRH 20:47 → TRANS SRH 20:47 → ACUTE2 SRH 22:15
PROVIDERS: ADMIT Emergency Medicine Emergency Medical Services
DX: J18.9 Pneumonia, unspecified organism (principal); R07.81 Pleurodynia; I12.9 Hypertensive chronic kidney disease with stage 1 through stage 4 chronic kidney disease, or unspecified chronic kidney disease; E11.22 Type 2 diabetes mellitus with diabetic chronic kidney disease; N18.9 Chronic kidney disease, unspecified; D63.1 Anemia in chronic kidney disease; I25.10 Atherosclerotic heart disease of native coronary artery without angina pectoris; K21.9 Gastro-esophageal reflux disease without esophagitis; E78.5 Hyperlipidemia, unspecified; I25.2 Old myocardial infarction
CPT/HCPCS: 29230; 29244; 29251; 29263; 85241; 90047; 90065; 90074; 90098; 90100; 90616; 92031; 92610; 92720; 93004; 95059